=== PATIENT | female | born 1955 | race Caucasian/White ===

== ENCOUNTER 2018-04-11 17:09 | Emergency (ER) | payer BC ==
[2018-04-11 18:36] LABS: ADD MAN DIFF? NO
[2018-04-11 18:37] LABS: WHITE BLOOD COUNT 6.3 10^3/ul (4.8-10.8)
[2018-04-11 18:37] LABS: BASOPHILS % 0.6 % (0.0-2.0); EOSINOPHILS # 0.2 10^3/ul (0.0-0.5); EOSINOPHILS % 3.3 % (0.0-7.0); HEMATOCRIT 32.6 % (37.0-47.0); HEMOGLOBIN 10.4 g/dl (12.0-16.0); LYMPHOCYTES # 1.2 10^3/ul (0.8-2.9); LYMPHOCYTES % 19.2 % (15.0-51.0); MEAN CORPUSCULAR HEMOGLOBIN 27.7 pg (29.0-33.0); MEAN CORPUSCULAR HGB CONC 31.9 g/dl (32.0-37.0); MEAN CORPUSCULAR VOLUME 86.9 fl (82.0-101.0); MEAN PLATELET VOLUME 9.7 fl (7.4-10.4); MONOCYTE # 0.7 10^3/ul (0.3-0.9); MONOCYTES % 10.6 % (0.0-11.0); NEUTROPHIL # 4.2 10^3/ul (1.6-7.5); NEUTROPHILS % 65.8 % (39.0-77.0); PLATELET COUNT 294 10^3/UL (140-415); RED BLOOD COUNT 3.75 10^6/ul (4.20-5.40); RED CELL DISTRIBUTION WIDTH 16.1 % (11.5-14.5)
[2018-04-11] MEDS: FUROSEMIDE 40 MG INJ IV (18:52)
[2018-04-11 18:57] LABS: ALANINE AMINOTRANSFERASE 18 IU/L (13-69); ALBUMIN 3.5 g/dl (3.3-4.9); ALBUMIN/GLOBULIN RATIO 0.89; ALKALINE PHOSPHATASE 65 IU/L (42-121); ANION GAP 7 (5-13); ASPARTATE AMINO TRANSFERASE 19 IU/L (15-46); BILIRUBIN,INDIRECT 0.3 mg/dl (0-1.1); BILIRUBIN,TOTAL 0.3 mg/dl (0.2-1.3); BLOOD UREA NITROGEN 17 mg/dl (7-20); CALCIUM 8.4 mg/dl (8.4-10.2); CARBON DIOXIDE 27 mmol/L (21-31); CHLORIDE 102 mmol/L (97-110); CREATININE 0.51 mg/dl (0.44-1.00); Estimated GFR > 60 mL/min (>60); GLUCOSE 152 mg/dl (70-220); POTASSIUM 3.5 mmol/L (3.5-5.1); SODIUM 136 mmol/L (135-144); TOTAL PROTEIN 7.4 g/dl (6.1-8.1)
[2018-04-11 19:09] LABS: B-TYPE NATRIURETIC PEPTIDE 128 PG/ML (0-125); TROPONIN-I < 0.012 ng/ml (0.000-0.120)
== END 2018-04-11 21:13 | disposition home or self-care (01) ==
LOC: E/R 17:09
DX: R60.9 Edema, unspecified (principal)
CPT/HCPCS: 36415; 71045; 80053; 83880; 84484; 85025; 93970; 96374; 99285-25

== ENCOUNTER 2018-05-04 18:39 | Emergency (ER) | payer BC ==
[2018-05-04 20:07] LABS: ADD MAN DIFF? NO
[2018-05-04 20:08] LABS: WHITE BLOOD COUNT 5.9 10^3/ul (4.8-10.8)
[2018-05-04 20:09] LABS: BASOPHIL # 0.1 10^3/ul (0.0-0.1); EOSINOPHILS # 0.4 10^3/ul (0.0-0.5); EOSINOPHILS % 6.6 % (0.0-7.0); HEMATOCRIT 37.4 % (37.0-47.0); HEMOGLOBIN 11.8 g/dl (12.0-16.0); LYMPHOCYTES # 1.3 10^3/ul (0.8-2.9); LYMPHOCYTES % 21.2 % (15.0-51.0); MEAN CORPUSCULAR HEMOGLOBIN 27.1 pg (29.0-33.0); MEAN CORPUSCULAR HGB CONC 31.6 g/dl (32.0-37.0); MEAN PLATELET VOLUME 9.9 fl (7.4-10.4); MONOCYTE # 0.5 10^3/ul (0.3-0.9); MONOCYTES % 9.1 % (0.0-11.0); NEUTROPHIL # 3.7 10^3/ul (1.6-7.5); NEUTROPHILS % 61.9 % (39.0-77.0); PLATELET COUNT 298 10^3/UL (140-415); RED BLOOD COUNT 4.35 10^6/ul (4.20-5.40); RED CELL DISTRIBUTION WIDTH 15.4 % (11.5-14.5)
[2018-05-04 20:16] LABS: ADD UMIC NO; UR ASCORBIC ACID NEGATIVE (NEGATIVE); UR BILIRUBIN (Dip) NEGATIVE (NEGATIVE); UR BLOOD (Dip) NEGATIVE (NEGATIVE); UR CLARITY SLIGHTLY CLOUDY (CLEAR); UR COLOR YELLOW (YELLOW); UR GLUCOSE (Dip) NEGATIVE (NEGATIVE); UR KETONES (Dip) NEGATIVE (NEGATIVE); UR LEUKOCYTE ESTERASE (Dip) NEGATIVE Leu/ul (NEGATIVE); UR MUCUS FEW /HPF (NONE SEEN); UR NITRITE (Dip) NEGATIVE (NEGATIVE); UR RBC 1 /HPF (0-5); UR SQUAMOUS EPITHELIAL CELL FEW /HPF (FEW); UR TOTAL PROTEIN (Dip) NEGATIVE (NEGATIVE); UR UROBILINOGEN (Dip) 1+ mg/dL (NEGATIVE); UR WBC 2 /HPF (0-5)
[2018-05-04 20:26] LABS: ALANINE AMINOTRANSFERASE 9 IU/L (13-69); ALBUMIN 3.7 g/dl (3.3-4.9); ALBUMIN/GLOBULIN RATIO 0.92; ALKALINE PHOSPHATASE 68 IU/L (42-121); ANION GAP 5 (5-13); ASPARTATE AMINO TRANSFERASE 23 IU/L (15-46); BILIRUBIN,INDIRECT 0.3 mg/dl (0-1.1); BILIRUBIN,TOTAL 0.3 mg/dl (0.2-1.3); BLOOD UREA NITROGEN 17 mg/dl (7-20); CALCIUM 8.5 mg/dl (8.4-10.2); CARBON DIOXIDE 31 mmol/L (21-31); CHLORIDE 101 mmol/L (97-110); CREATININE 0.54 mg/dl (0.44-1.00); Estimated GFR > 60 mL/min (>60); GLUCOSE 199 mg/dl (70-220); LIPASE 109 U/L (23-300); POTASSIUM 3.8 mmol/L (3.5-5.1); SODIUM 137 mmol/L (135-144); TOTAL PROTEIN 7.7 g/dl (6.1-8.1)
== END 2018-05-04 23:51 | disposition home or self-care (01) ==
LOC: E/R 18:39
DX: M79.604 Pain in right leg (principal); M79.605 Pain in left leg; E11.9 Type 2 diabetes mellitus without complications; Z79.84 Long term (current) use of oral hypoglycemic drugs
CPT/HCPCS: 71045; 80053; 81001; 81003; 83690; 85025; 93005; 99285-25

== ENCOUNTER 2018-05-15 12:06 | Emergency (ER) | payer BC ==
[2018-05-15] MEDS: IBUPROFEN 600 MG TAB PO (16:05)
[2018-05-15 16:09] LABS: ADD MAN DIFF? NO
[2018-05-15 16:13] LABS: WHITE BLOOD COUNT 5.3 10^3/ul (4.8-10.8)
[2018-05-15 16:13] LABS: BASOPHILS % 0.8 % (0.0-2.0); EOSINOPHILS # 0.3 10^3/ul (0.0-0.5); EOSINOPHILS % 4.7 % (0.0-7.0); HEMATOCRIT 34.5 % (37.0-47.0); HEMOGLOBIN 10.9 g/dl (12.0-16.0); LYMPHOCYTES # 1.1 10^3/ul (0.8-2.9); LYMPHOCYTES % 21.4 % (15.0-51.0); MEAN CORPUSCULAR HGB CONC 31.6 g/dl (32.0-37.0); MEAN CORPUSCULAR VOLUME 85.4 fl (82.0-101.0); MEAN PLATELET VOLUME 9.6 fl (7.4-10.4); MONOCYTE # 0.6 10^3/ul (0.3-0.9); NEUTROPHIL # 3.2 10^3/ul (1.6-7.5); NEUTROPHILS % 60.9 % (39.0-77.0); PLATELET COUNT 267 10^3/UL (140-415); RED BLOOD COUNT 4.04 10^6/ul (4.20-5.40); RED CELL DISTRIBUTION WIDTH 15.6 % (11.5-14.5)
[2018-05-15 16:30] LABS: ADD UMIC YES; UR ASCORBIC ACID NEGATIVE (NEGATIVE); UR BACTERIA FEW /HPF (NONE SEEN); UR BILIRUBIN (Dip) NEGATIVE (NEGATIVE); UR BLOOD (Dip) 1+ mg/dL (NEGATIVE); UR CLARITY CLEAR (CLEAR); UR COLOR STRAW (YELLOW); UR GLUCOSE (Dip) NEGATIVE (NEGATIVE); UR KETONES (Dip) NEGATIVE (NEGATIVE); UR LEUKOCYTE ESTERASE (Dip) NEGATIVE Leu/ul (NEGATIVE); UR NITRITE (Dip) NEGATIVE (NEGATIVE); UR RBC 0 /HPF (0-5); UR SPECIFIC GRAVITY (Dip) 1.004 (1.003-1.030); UR TOTAL PROTEIN (Dip) NEGATIVE (NEGATIVE); UR UROBILINOGEN (Dip) NEGATIVE (NEGATIVE); UR WBC 0 /HPF (0-5)
[2018-05-15 16:31] LABS: ANION GAP 7 (5-13); BLOOD UREA NITROGEN 10 mg/dl (7-20); CALCIUM 8.8 mg/dl (8.4-10.2); CARBON DIOXIDE 32 mmol/L (21-31); CHLORIDE 100 mmol/L (97-110); CREATININE 0.41 mg/dl (0.44-1.00); Estimated GFR > 60 mL/min (>60); GLUCOSE 138 mg/dl (70-220); SODIUM 139 mmol/L (135-144)
== END 2018-05-15 17:15 | disposition home or self-care (01) ==
LOC: E/R 12:06
DX: M79.641 Pain in right hand (principal); E11.9 Type 2 diabetes mellitus without complications; R60.9 Edema, unspecified; M79.642 Pain in left hand; M79.605 Pain in left leg; M79.604 Pain in right leg
CPT/HCPCS: 80048; 81001; 85025; 99283

== ENCOUNTER 2018-07-02 21:43 | Inpatient (IN) | payer BC ==
[2018-07-02] MEDS ORDERED: morphine 2 MG INJ IV (23:30)
[2018-07-02] MEDS ORDERED: ONDANSETRON 4 MG INJ IV (23:30)
[2018-07-02] MEDS ORDERED: NACL 0.9% 3 ML SYG IV (23:30)
[2018-07-02 23:49] LABS: ADD MAN DIFF? NO
[2018-07-02 23:50] LABS: BASOPHILS % 0.4 % (0.0-2.0); EOSINOPHILS % 0.3 % (0.0-7.0); HEMATOCRIT 30.6 % (37.0-47.0); HEMOGLOBIN 9.8 g/dl (12.0-16.0); LYMPHOCYTES % 12.2 % (15.0-51.0); MEAN CORPUSCULAR HEMOGLOBIN 27.1 pg (29.0-33.0); MEAN CORPUSCULAR VOLUME 84.8 fl (82.0-101.0); MONOCYTE # 0.6 10^3/ul (0.3-0.9); MONOCYTES % 7.2 % (0.0-11.0); NEUTROPHIL # 6.2 10^3/ul (1.6-7.5); NEUTROPHILS % 79.4 % (39.0-77.0); PLATELET COUNT 236 10^3/UL (140-415); RED BLOOD COUNT 3.61 10^6/ul (4.20-5.40); RED CELL DISTRIBUTION WIDTH 15.4 % (11.5-14.5)
[2018-07-02 23:50] LABS: WHITE BLOOD COUNT 7.8 10^3/ul (4.8-10.8)
[2018-07-03 00:12] LABS: ALANINE AMINOTRANSFERASE 24 IU/L (13-69); ALBUMIN 3.1 g/dl (3.3-4.9); ALKALINE PHOSPHATASE 61 IU/L (42-121); ANION GAP 4 (5-13); ASPARTATE AMINO TRANSFERASE 22 IU/L (15-46); BILIRUBIN,INDIRECT 0.4 mg/dl (0-1.1); BILIRUBIN,TOTAL 0.4 mg/dl (0.2-1.3); BLOOD UREA NITROGEN 13 mg/dl (7-20); CALCIUM 8.3 mg/dl (8.4-10.2); CARBON DIOXIDE 30 mmol/L (21-31); CHLORIDE 98 mmol/L (97-110); CHOL/HDL RATIO 2.5 RATIO; CHOLESTEROL 119 mg/dl (100-200); CREATININE 0.52 mg/dl (0.44-1.00); Estimated GFR > 60 mL/min (>60); GLUCOSE 167 mg/dl (70-220); HDL CHOLESTEROL 46 mg/dl (35-98); LDL CHOLESTEROL,CALCULATED 53 mg/dl; MAGNESIUM 1.8 mg/dl (1.7-2.5); POTASSIUM 4.2 mmol/L (3.5-5.1); SODIUM 132 mmol/L (135-144); TOTAL PROTEIN 6.2 g/dl (6.1-8.1); TRIGLYCERIDES 101 mg/dl (0-149)
[2018-07-03] MEDS: HYDROCODONE/APAP (5/325) TAB PO ×3 (00:26→15:41)
[2018-07-03 01:52] LABS: HEMOGLOBIN A1C 7.6 % (0-5.9)
[2018-07-03] MEDS: ACETAMINOPHEN 325 MG TAB PO (02:56)
[2018-07-03] MEDS ORDERED: DEXTROSE 50% 50 ML SYRINGE IV ×2 (04:30)
[2018-07-03] MEDS ORDERED: GLUCOSE GEL 15 GRAM TUBE PO ×2 (04:30)
[2018-07-03] MEDS ORDERED: GLUCAGON 1 MG INJ IM (04:30)
[2018-07-03] MEDS ORDERED: GLUCOSE GEL 15 GRAM TUBE BUCCAL (04:30)
[2018-07-03] MEDS: HEPARIN 5,000 UNIT/1 ML VIAL SC ×2 (06:50→12:29)
[2018-07-03] MEDS ORDERED: ALBUMIN HUMAN 5% 250 ML INJ (07:00)
[2018-07-03] MEDS ORDERED: PROPOFOL 200 MG INJ (07:00)
[2018-07-03] MEDS ORDERED: EPHEDrine SULFATE 50 MG/5 ML SYG (07:00)
[2018-07-03] MEDS ORDERED: SEVOFLURANE 15 MIN (07:00)
[2018-07-03] MEDS ORDERED: CEFAZOLIN 1 GM INJ (07:00)
[2018-07-03] MEDS: INSULIN ASPART [NOVOLOG] 3 ML PEN SC ×4 (08:30→21:00)
[2018-07-03 10:37] LABS: HEPATITIS B SURFACE ANTIGEN NEGATIVE (NEGATIVE)
[2018-07-03 10:54] LABS: HEPATITIS C VIRAL ANTIBODY NEGATIVE (NEGATIVE)
[2018-07-03] MEDS: DULOXETINE 30 MG CAP DR PO (11:52)
[2018-07-03 12:18] LABS: ADD MAN DIFF? NO
[2018-07-03 12:20] LABS: BASOPHIL # 0.1 10^3/ul (0.0-0.1); BASOPHILS % 0.8 % (0.0-2.0); EOSINOPHILS % 0.6 % (0.0-7.0); HEMATOCRIT 31.4 % (37.0-47.0); HEMOGLOBIN 9.9 g/dl (12.0-16.0); LYMPHOCYTES # 1.1 10^3/ul (0.8-2.9); LYMPHOCYTES % 17.1 % (15.0-51.0); MEAN CORPUSCULAR HGB CONC 31.5 g/dl (32.0-37.0); MEAN CORPUSCULAR VOLUME 85.6 fl (82.0-101.0); MEAN PLATELET VOLUME 9.8 fl (7.4-10.4); MONOCYTE # 0.7 10^3/ul (0.3-0.9); MONOCYTES % 10.4 % (0.0-11.0); NEUTROPHIL # 4.4 10^3/ul (1.6-7.5); NEUTROPHILS % 70.8 % (39.0-77.0); PLATELET COUNT 212 10^3/UL (140-415); RED BLOOD COUNT 3.67 10^6/ul (4.20-5.40); RED CELL DISTRIBUTION WIDTH 15.8 % (11.5-14.5)
[2018-07-03 12:20] LABS: WHITE BLOOD COUNT 6.3 10^3/ul (4.8-10.8)
[2018-07-03 12:47] LABS: ALANINE AMINOTRANSFERASE 20 IU/L (13-69); ALBUMIN 3.4 g/dl (3.3-4.9); ALKALINE PHOSPHATASE 59 IU/L (42-121); ANION GAP 8 (5-13); ASPARTATE AMINO TRANSFERASE 22 IU/L (15-46); BILIRUBIN,INDIRECT 0.5 mg/dl (0-1.1); BILIRUBIN,TOTAL 0.5 mg/dl (0.2-1.3); BLOOD UREA NITROGEN 13 mg/dl (7-20); CALCIUM 8.4 mg/dl (8.4-10.2); CARBON DIOXIDE 29 mmol/L (21-31); CHLORIDE 98 mmol/L (97-110); CREATININE 0.59 mg/dl (0.44-1.00); Estimated GFR > 60 mL/min (>60); GLUCOSE 189 mg/dl (70-220); POTASSIUM 3.9 mmol/L (3.5-5.1); SODIUM 135 mmol/L (135-144); TOTAL PROTEIN 6.8 g/dl (6.1-8.1)
[2018-07-03 12:51] LABS: INR 1.11; PROTIME 14.4 Sec (11.9-14.9); PT RATIO 1.1
[2018-07-03] MEDS: morphine 4 MG/ML VIAL IV (13:25)
[2018-07-03] MEDS: PIPER-TAZO 3.375 GM IV (PMX) 100 ML IVPB (14:56)
[2018-07-03] MEDS ORDERED: FENTAnyl 50 MCG/ML VIAL (19:24)
[2018-07-03] MEDS ORDERED: MIDAZOLAM 1 MG/ML 2 ML INJ (19:24)
[2018-07-03] MEDS ORDERED: morphine SULFATE/PF (10 MG/10 ML) INJ (19:25)
[2018-07-03] MEDS ORDERED: hydrALAzine 20 MG INJ IV (20:00)
[2018-07-03] MEDS ORDERED: MEPERIDINE 25 MG INJ IV (20:00)
[2018-07-03] MEDS ORDERED: EPHEDrine SULFATE 50 MG/5 ML SYG IV (20:00)
[2018-07-03] MEDS ORDERED: FENTAnyl 50 MCG/ML VIAL IV ×3 (20:00)
[2018-07-03] MEDS ORDERED: OXYCODONE/ACETAMINOPHEN (5/325) TAB PO (20:00)
[2018-07-03] MEDS ORDERED: ONDANSETRON 4 MG INJ IV (20:00)
[2018-07-03] MEDS ORDERED: HYDROmorphONE 1 MG/5 ML IV SYRINGE IV ×2 (20:00)
[2018-07-03] MEDS ORDERED: LABETALOL HCL 20MG INJ IV (20:00)
[2018-07-03] MEDS ORDERED: NALOXONE (0.4 MG/ML) INJ IV (20:00)
[2018-07-03] MEDS ORDERED: METOCLOPRAMIDE 10 MG INJ IV (20:00)
[2018-07-03] MEDS ORDERED: ALBUMIN HUMAN 5% 250 ML IV (20:00)
[2018-07-03] MEDS ORDERED: HETASTARCH 6% NACL 500 ML (20:11)
[2018-07-03] MEDS ORDERED: DEXAMETHASONE 4 MG/ML 5 ML INJ (20:11)
[2018-07-03] MEDS ORDERED: ALBUMIN HUMAN 5% 250 ML (20:11)
[2018-07-03] MEDS ORDERED: PHENYLephrine (100 MCG/ML) 5ML SYG (20:11)
[2018-07-03] MEDS ORDERED: ONDANSETRON 4 MG INJ (20:11)
[2018-07-03] MEDS ORDERED: METOCLOPRAMIDE 10 MG INJ (20:11)
[2018-07-03] MEDS ORDERED: ROPIVACAINE 0.2% 20 ML VIAL (21:25)
[2018-07-03] MEDS: HYDROmorphONE 1 MG/5 ML IV SYRINGE IV (22:54)
[2018-07-03] MEDS: DIPHENHYDRAMINE 50 MG INJ IV (22:54)
[2018-07-04] MEDS: CEFAZOLIN 2 GM/50 ML (PMX) 50 ML IVPB ×3 (00:20→17:05)
[2018-07-04 05:03] LABS: ADD MAN DIFF? NO
[2018-07-04 05:04] LABS: ABNORMAL IP MESSAGE 1; BASOPHILS % 0.1 % (0.0-2.0); HEMATOCRIT 29.3 % (37.0-47.0); HEMOGLOBIN 9.1 g/dl (12.0-16.0); LYMPHOCYTES # 0.5 10^3/ul (0.8-2.9); LYMPHOCYTES % 6.7 % (15.0-51.0); MEAN CORPUSCULAR HEMOGLOBIN 27.5 pg (29.0-33.0); MEAN CORPUSCULAR HGB CONC 31.1 g/dl (32.0-37.0); MEAN CORPUSCULAR VOLUME 88.5 fl (82.0-101.0); MONOCYTE # 0.2 10^3/ul (0.3-0.9); MONOCYTES % 2.3 % (0.0-11.0); NEUTROPHIL # 6.6 10^3/ul (1.6-7.5); NEUTROPHILS % 90.5 % (39.0-77.0); PLATELET COUNT 175 10^3/UL (140-415); RED BLOOD COUNT 3.31 10^6/ul (4.20-5.40); RED CELL DISTRIBUTION WIDTH 15.5 % (11.5-14.5)
[2018-07-04 05:04] LABS: WHITE BLOOD COUNT 7.3 10^3/ul (4.8-10.8)
[2018-07-04 05:09] LABS: POSITIVE DIFF @See below
[2018-07-04 05:25] LABS: IRON 34 ug/dl (35-150)
[2018-07-04 05:28] LABS: ALBUMIN 3.3 g/dl (3.3-4.9); ANION GAP 8 (5-13); BLOOD UREA NITROGEN 13 mg/dl (7-20); CALCIUM 8.2 mg/dl (8.4-10.2); CARBON DIOXIDE 27 mmol/L (21-31); CHLORIDE 106 mmol/L (97-110); CREATININE 0.53 mg/dl (0.44-1.00); GLUCOSE 234 mg/dl (70-220); MAGNESIUM 2.1 mg/dl (1.7-2.5); POTASSIUM 4.6 mmol/L (3.5-5.1); SODIUM 141 mmol/L (135-144)
[2018-07-04 05:34] LABS: % IRON SATURATION 13 % SAT (22-52); TOTAL IRON BINDING CAPACITY 258 ug/dl (241-421)
[2018-07-04] MEDS: DULOXETINE 30 MG CAP DR PO (08:44)
[2018-07-04] MEDS: ENOXAPARIN 40 MG/0.4 ML SYG SC (08:46)
[2018-07-04] MEDS: INSULIN ASPART [NOVOLOG] 3 ML PEN SC ×4 (08:47→20:46)
[2018-07-04] MEDS: FERROUS SULFATE (EC) 325 MG TAB PO (10:25)
[2018-07-04] MEDS: morphine 4 MG/ML VIAL IV (17:04)
[2018-07-04] MEDS: HYDROCODONE/APAP (5/325) TAB PO (19:41)
[2018-07-04] MEDS: LORAZEPAM 2 MG INJ IV (19:41)
[2018-07-05] MEDS: HYDROCODONE/APAP (5/325) TAB PO ×3 (00:37→18:05)
[2018-07-05 05:03] LABS: ADD MAN DIFF? NO
[2018-07-05 05:05] LABS: BASOPHILS % 0.5 % (0.0-2.0); EOSINOPHILS # 0.1 10^3/ul (0.0-0.5); EOSINOPHILS % 0.6 % (0.0-7.0); HEMATOCRIT 27.5 % (37.0-47.0); HEMOGLOBIN 8.5 g/dl (12.0-16.0); LYMPHOCYTES # 1.3 10^3/ul (0.8-2.9); LYMPHOCYTES % 14.8 % (15.0-51.0); MEAN CORPUSCULAR HEMOGLOBIN 27.2 pg (29.0-33.0); MEAN CORPUSCULAR HGB CONC 30.9 g/dl (32.0-37.0); MEAN CORPUSCULAR VOLUME 87.9 fl (82.0-101.0); MEAN PLATELET VOLUME 10.7 fl (7.4-10.4); MONOCYTE # 0.6 10^3/ul (0.3-0.9); MONOCYTES % 7.5 % (0.0-11.0); NEUTROPHIL # 6.5 10^3/ul (1.6-7.5); NEUTROPHILS % 76.1 % (39.0-77.0); PLATELET COUNT 190 10^3/UL (140-415); RED BLOOD COUNT 3.13 10^6/ul (4.20-5.40); RED CELL DISTRIBUTION WIDTH 16.2 % (11.5-14.5)
[2018-07-05 05:05] LABS: WHITE BLOOD COUNT 8.6 10^3/ul (4.8-10.8)
[2018-07-05 05:30] LABS: ALBUMIN 2.9 g/dl (3.3-4.9); ANION GAP 7 (5-13); BLOOD UREA NITROGEN 15 mg/dl (7-20); CALCIUM 8.1 mg/dl (8.4-10.2); CARBON DIOXIDE 31 mmol/L (21-31); CHLORIDE 101 mmol/L (97-110); CREATININE 0.46 mg/dl (0.44-1.00); GLUCOSE 176 mg/dl (70-220); PHOSPHORUS 2.6 mg/dl (2.5-4.9); POTASSIUM 3.8 mmol/L (3.5-5.1); SODIUM 139 mmol/L (135-144)
[2018-07-05] MEDS: morphine 4 MG/ML VIAL IV (08:00)
[2018-07-05] MEDS: FERROUS SULFATE (EC) 325 MG TAB PO (08:05)
[2018-07-05] MEDS: DULOXETINE 30 MG CAP DR PO (08:05)
[2018-07-05] MEDS: ENOXAPARIN 40 MG/0.4 ML SYG SC (08:14)
[2018-07-05] MEDS: INSULIN ASPART [NOVOLOG] 3 ML PEN SC ×4 (08:48→21:00)
[2018-07-05 08:52] LABS: HEMATOCRIT 27.2 % (37.0-47.0); HEMOGLOBIN 8.5 g/dl (12.0-16.0)
[2018-07-06] MEDS: morphine 4 MG/ML VIAL IV (01:18)
[2018-07-06] MEDS: HYDROCODONE/APAP (5/325) TAB PO ×2 (03:52→17:06)
[2018-07-06 05:24] LABS: ADD MAN DIFF? NO
[2018-07-06 05:29] LABS: BASOPHILS % 0.7 % (0.0-2.0); EOSINOPHILS # 0.2 10^3/ul (0.0-0.5); EOSINOPHILS % 3.1 % (0.0-7.0); HEMATOCRIT 29.1 % (37.0-47.0); HEMOGLOBIN 9.1 g/dl (12.0-16.0); LYMPHOCYTES # 0.9 10^3/ul (0.8-2.9); LYMPHOCYTES % 15.3 % (15.0-51.0); MEAN CORPUSCULAR HEMOGLOBIN 27.2 pg (29.0-33.0); MEAN CORPUSCULAR HGB CONC 31.3 g/dl (32.0-37.0); MEAN CORPUSCULAR VOLUME 87.1 fl (82.0-101.0); MEAN PLATELET VOLUME 10.1 fl (7.4-10.4); MONOCYTE # 0.5 10^3/ul (0.3-0.9); MONOCYTES % 8.7 % (0.0-11.0); NEUTROPHIL # 4.2 10^3/ul (1.6-7.5); NEUTROPHILS % 71.9 % (39.0-77.0); NUCLEATED RED BLOOD CELLS% 0.7 /100WBC (0.0-0.0); PLATELET COUNT 246 10^3/UL (140-415); RED BLOOD COUNT 3.34 10^6/ul (4.20-5.40); RED CELL DISTRIBUTION WIDTH 15.7 % (11.5-14.5)
[2018-07-06 05:29] LABS: WHITE BLOOD COUNT 5.9 10^3/ul (4.8-10.8)
[2018-07-06] MEDS: INSULIN ASPART [NOVOLOG] 3 ML PEN SC ×4 (07:50→21:26)
[2018-07-06] MEDS: FERROUS SULFATE (EC) 325 MG TAB PO (08:39)
[2018-07-06] MEDS: DULOXETINE 30 MG CAP DR PO (08:39)
[2018-07-06] MEDS: ENOXAPARIN 40 MG/0.4 ML SYG SC (08:41)
[2018-07-07] MEDS: HYDROCODONE/APAP (5/325) TAB PO ×3 (01:09→17:38)
[2018-07-07] MEDS: BISACODYL (EC) 5 MG TAB PO ×2 (05:57→21:05)
[2018-07-07] MEDS: DOCUSATE SODIUM 100 MG CAP PO ×2 (05:58→21:05)
[2018-07-07] MEDS: DULOXETINE 30 MG CAP DR PO (08:40)
[2018-07-07] MEDS: FERROUS SULFATE (EC) 325 MG TAB PO (08:40)
[2018-07-07] MEDS: INSULIN ASPART [NOVOLOG] 3 ML PEN SC ×4 (08:45→21:15)
[2018-07-07] MEDS: ENOXAPARIN 40 MG/0.4 ML SYG SC (08:46)
[2018-07-07] MEDS ORDERED: morphine LIQ (10 MG/5 ML) CUP PO (15:00)
[2018-07-08] MEDS: HYDROCODONE/APAP (5/325) TAB PO (01:17)
[2018-07-08 05:29] LABS: ADD MAN DIFF? NO
[2018-07-08 05:30] LABS: WHITE BLOOD COUNT 5.5 10^3/ul (4.8-10.8)
[2018-07-08 05:30] LABS: BASOPHILS % 0.5 % (0.0-2.0); EOSINOPHILS # 0.4 10^3/ul (0.0-0.5); HEMATOCRIT 32.6 % (37.0-47.0); HEMOGLOBIN 10.3 g/dl (12.0-16.0); LYMPHOCYTES # 1.1 10^3/ul (0.8-2.9); LYMPHOCYTES % 20.3 % (15.0-51.0); MEAN CORPUSCULAR HGB CONC 31.6 g/dl (32.0-37.0); MEAN CORPUSCULAR VOLUME 85.3 fl (82.0-101.0); MEAN PLATELET VOLUME 9.8 fl (7.4-10.4); MONOCYTE # 0.5 10^3/ul (0.3-0.9); MONOCYTES % 9.6 % (0.0-11.0); NEUTROPHIL # 3.4 10^3/ul (1.6-7.5); NEUTROPHILS % 61.2 % (39.0-77.0); PLATELET COUNT 327 10^3/UL (140-415); RED BLOOD COUNT 3.82 10^6/ul (4.20-5.40); RED CELL DISTRIBUTION WIDTH 15.9 % (11.5-14.5)
[2018-07-08 06:03] LABS: ALBUMIN 3.3 g/dl (3.3-4.9); ANION GAP 11 (5-13); BLOOD UREA NITROGEN 18 mg/dl (7-20); CALCIUM 8.9 mg/dl (8.4-10.2); CARBON DIOXIDE 31 mmol/L (21-31); CHLORIDE 98 mmol/L (97-110); CREATININE 0.46 mg/dl (0.44-1.00); GLUCOSE 193 mg/dl (70-220); MAGNESIUM 2.1 mg/dl (1.7-2.5); PHOSPHORUS 4.3 mg/dl (2.5-4.9); POTASSIUM 3.6 mmol/L (3.5-5.1); SODIUM 140 mmol/L (135-144)
[2018-07-08] MEDS: DULOXETINE 30 MG CAP DR PO (08:39)
[2018-07-08] MEDS: POTASSIUM CHLORIDE (SR) 20 MEQ TAB PO (08:39)
[2018-07-08] MEDS: FERROUS SULFATE (EC) 325 MG TAB PO (08:39)
[2018-07-08] MEDS: INSULIN ASPART [NOVOLOG] 3 ML PEN SC ×4 (08:43→20:44)
[2018-07-08] MEDS: ENOXAPARIN 40 MG/0.4 ML SYG SC (08:43)
[2018-07-08] MEDS: DOCUSATE SODIUM 100 MG CAP PO (10:03)
[2018-07-08] MEDS: POLYETHYLENE GLYCOL 17 GM PACKET PO (12:44)
[2018-07-08] MEDS: SENNA/DOCUSATE NA (8.6MG/50MG) TAB PO (20:43)
[2018-07-08] MEDS: ACETAMINOPHEN 325 MG TAB PO (23:00)
[2018-07-09 05:18] LABS: ADD MAN DIFF? NO
[2018-07-09 05:23] LABS: BASOPHILS % 0.7 % (0.0-2.0); EOSINOPHILS # 0.3 10^3/ul (0.0-0.5); EOSINOPHILS % 4.9 % (0.0-7.0); HEMATOCRIT 32.8 % (37.0-47.0); HEMOGLOBIN 10.5 g/dl (12.0-16.0); LYMPHOCYTES % 17.7 % (15.0-51.0); MEAN CORPUSCULAR HEMOGLOBIN 27.1 pg (29.0-33.0); MEAN CORPUSCULAR VOLUME 84.5 fl (82.0-101.0); MEAN PLATELET VOLUME 9.7 fl (7.4-10.4); MONOCYTE # 0.7 10^3/ul (0.3-0.9); MONOCYTES % 11.2 % (0.0-11.0); NEUTROPHIL # 3.8 10^3/ul (1.6-7.5); PLATELET COUNT 355 10^3/UL (140-415); RED BLOOD COUNT 3.88 10^6/ul (4.20-5.40); RED CELL DISTRIBUTION WIDTH 15.9 % (11.5-14.5)
[2018-07-09 05:23] LABS: WHITE BLOOD COUNT 5.9 10^3/ul (4.8-10.8)
[2018-07-09 05:41] LABS: ALBUMIN 3.4 g/dl (3.3-4.9); ANION GAP 13 (5-13); BLOOD UREA NITROGEN 13 mg/dl (7-20); CALCIUM 9.1 mg/dl (8.4-10.2); CARBON DIOXIDE 30 mmol/L (21-31); CHLORIDE 97 mmol/L (97-110); CREATININE 0.44 mg/dl (0.44-1.00); GLUCOSE 171 mg/dl (70-220); PHOSPHORUS 4.2 mg/dl (2.5-4.9); POTASSIUM 3.7 mmol/L (3.5-5.1); SODIUM 140 mmol/L (135-144)
[2018-07-09] MEDS: DULOXETINE 30 MG CAP DR PO (08:45)
[2018-07-09] MEDS: SENNA/DOCUSATE NA (8.6MG/50MG) TAB PO ×2 (08:45→20:13)
[2018-07-09] MEDS: FERROUS SULFATE (EC) 325 MG TAB PO (08:45)
[2018-07-09] MEDS: POLYETHYLENE GLYCOL 17 GM PACKET PO (08:46)
[2018-07-09] MEDS: ENOXAPARIN 40 MG/0.4 ML SYG SC (08:47)
[2018-07-09] MEDS: INSULIN ASPART [NOVOLOG] 3 ML PEN SC ×4 (08:47→20:17)
[2018-07-09] MEDS: ACETAMINOPHEN 325 MG TAB PO (13:14)
[2018-07-10] MEDS: INSULIN ASPART [NOVOLOG] 3 ML PEN SC ×2 (08:37→13:23)
[2018-07-10] MEDS: FERROUS SULFATE (EC) 325 MG TAB PO (08:38)
[2018-07-10] MEDS: SENNA/DOCUSATE NA (8.6MG/50MG) TAB PO (08:38)
[2018-07-10] MEDS: DULOXETINE 30 MG CAP DR PO (08:38)
[2018-07-10] MEDS: POLYETHYLENE GLYCOL 17 GM PACKET PO (08:39)
[2018-07-10] MEDS: ENOXAPARIN 40 MG/0.4 ML SYG SC (08:41)
== END 2018-07-10 16:35 | DRG 481 ==
LOC: 6WM 21:43 → MS1 07-03 22:28
PROC: 0QH734Z Insertion of Internal Fixation Device into Left Upper Femur, Percutaneous Approach (ICD-10-PCS; principal; 2018-07-03 18:00)
PROC: 2W3BX1Z Immobilization of Left Upper Arm using Splint (ICD-10-PCS; 2018-07-03 18:00)
DX: S72.012A Unspecified intracapsular fracture of left femur, initial encounter for closed fracture (principal); S42.292A Other displaced fracture of upper end of left humerus, initial encounter for closed fracture; S42.492A Other displaced fracture of lower end of left humerus, initial encounter for closed fracture; F32.9 Major depressive disorder, single episode, unspecified; E11.9 Type 2 diabetes mellitus without complications; K59.00 Constipation, unspecified; W10.8XXA Fall (on) (from) other stairs and steps, initial encounter; Y92.59 Other trade areas as the place of occurrence of the external cause
CPT/HCPCS: 71045; 72170; 73060; 73080-LT; 73090; 73510; 73520; 73530; 73550; 80053; 80061; 80069; 82962; 83036; 83540; 83735; 84443; 85014; 85018; 85025; 85610; 86803; 86850; 86900; 86901; 87081; 87086; 87340; 93005; 93306; 93880; 97110; 97116; 97162; 97530